=== PATIENT | female | born 1995 | race Two or more races ===

== ENCOUNTER 2019-06-08 19:28 | Emergency (ER) | payer SELFPAY ==
[~2019-06-08] VITALS: Ht 144.8 cm; Wt 56.7 kg
[2019-06-08 19:46] VITALS: BP 137/94
[2019-06-08] MEDS ORDERED: IBUPROFEN 100MG/5ML ORAL SUSP 100 MG/5 ML UD PO ONE (23:00)
== END 2019-06-08 23:36 | disposition home or self-care (01) ==
LOC: ER 19:28
DX: S80.862A Insect bite (nonvenomous), left lower leg, initial encounter (principal); L03.116 Cellulitis of left lower limb; R42 Dizziness and giddiness; R51 Headache; W57.XXXA Bitten or stung by nonvenomous insect and other nonvenomous arthropods, initial encounter; Y93.89 Activity, other specified; Y92.89 Other specified places as the place of occurrence of the external cause; Y99.8 Other external cause status